=== PATIENT | male | born 1980 | race Caucasian/White ===

== ENCOUNTER 2018-05-17 23:12 | Emergency (ER) | payer SELFPAY ==
[~2018-05-17] VITALS: Ht 175.3 cm; Wt 83.9 kg
[2018-05-17] MEDS ORDERED: LACTATED RINGERS 1,000 ML IV ONE (23:34)
[2018-05-17] MEDS ORDERED: ONDANSETRON 4 MG/2 ML (SDV) Z0FRAN IVP ONE (23:45)
[2018-05-17 23:48] LABS: BASOPHILS # (AUTO) 0.1 10^3/uL (0.0-0.1); BASOPHILS % (AUTO) 1 % (0-10); EOSINOPHILS # (AUTO) 0.3 10^3/uL (0.0-0.3); EOSINOPHILS % (AUTO) 3 % (0-10); HEMATOCRIT 48 % (40-54); LYMPHOCYTES # (AUTO) 1.7 X 10^3 (1.0-4.0); LYMPHOCYTES % (AUTO) 19 % (12-44); MEAN CORPUSCULAR HEMOGLOBIN 28 PG (25-34); MEAN CORPUSCULAR HGB CONC 33 G/DL (32-36); MEAN CORPUSCULAR VOLUME 85 FL (80-99); MEAN PLATELET VOLUME 11.1 FL (7.4-10.4); MONOCYTES # (AUTO) 0.9 X 10^3 (0.0-1.0); MONOCYTES % (AUTO) 10 % (0-12); NEUTROPHILS # (AUTO) 6.2 X 10^3 (1.8-7.8); NEUTROPHILS % (AUTO) 68 % (42-75); PLATELET COUNT 292 10^3/uL (130-400); RED BLOOD COUNT 5.65 10^6/uL (4.35-5.85); RED CELL DISTRIBUTION WIDTH 14.1 % (10.0-14.5); WHITE BLOOD COUNT 9.1 10^3/uL (4.3-11.0)
[2018-05-18 00:03] LABS: ALANINE AMINOTRANSFERASE 43 U/L (0-55); ALBUMIN 4.6 GM/DL (3.2-4.5); ALKALINE PHOSPHATASE 116 U/L (40-136); AMYLASE 48 U/L (25-125); BILIRUBIN,TOTAL 0.6 MG/DL (0.1-1.0); BUN/CREATININE RATIO 16; CALCIUM 9.9 MG/DL (8.5-10.1); CARBON DIOXIDE 30 MMOL/L (21-32); CHLORIDE 100 MMOL/L (98-107); CREATININE SERUM 0.86 MG/DL (0.60-1.30); GFR ESTIMATED > 60; GLUCOSE 112 MG/DL (70-105); LIPASE 32 U/L (8-78); POTASSIUM 4.2 MMOL/L (3.6-5.0); SODIUM 143 MMOL/L (135-145); TOTAL PROTEIN 7.8 GM/DL (6.4-8.2)
[2018-05-18] MEDS ORDERED: LACTATED RINGERS 1,000 ML IV ONE (00:16)
[2018-05-18] MEDS ORDERED: NS IV 1000 ML 1,000 ML IV ONE (00:24)
[2018-05-18 01:27] LABS: BILIRUBIN,URINE NEGATIVE (NEGATIVE); CLARITY,URINE CLEAR; COLOR,URINE YELLOW; GLUCOSE, URINE (UA) 1+ (NEGATIVE); KETONES,URINE NEGATIVE (NEGATIVE); LEUKOCYTE ESTERASE ,URINE 1+ (NEGATIVE); NITRITE,URINE NEGATIVE (NEGATIVE); PH,URINE 8 (5-9); PROTEIN,URINE NEGATIVE (NEGATIVE); UROBILINOGEN,URINE NORMAL (NORMAL)
[2018-05-18 01:36] LABS: BACTERIA,URINE MODERATE /HPF; SQUAMOUS EPITHELIAL CELL,UR RARE /HPF; WBC,URINE RARE /HPF
[2018-05-18] MEDS ORDERED: cefTRIAXone FOR IV USE 1,000 MG in NS (IVPB) 50 ML IV ONE (02:15)
--- NOTE | 2018-05-18 02:16 | ED GI ---
General Chief Complaint: Abdominal/GI Problems Stated Complaint: N,V Nursing Triage Note: PT AMB TO ROOM #9 W/O DIFFICULTY. A&OX4. C/O MEDIAL ABD PAIN, BLOATING, NAUSEA, AND VOMITING. REPORTS HE WAS CUTTING BLACK WALNUT TREES DOWN X2 DAYS AGO AND READ ON GOOGLE THAT BLACK WALNUT DUST IS POISONOUS TO INHAIL. PT REPORTS FOR >24HRS HE HAS BEEN NAUSEOUS AND VOMITING >12X. REPORTS HE IS NERVOUS THE BLACK WALNUT DUST IS MAKING HIM SICK. LUNG SOUNDS CTA. Sepsis Screen: No Definite Risk Source of Information: Patient (TALKS NON-STOP AND SOMEWHAT DIFFICULT TO KEEP ON SUBJECT. ) History of Present Illness Date Seen by Provider: May 17, 2018 Time Seen by Provider: 23:30 Initial Comments PT ARRIVES VIA POV FROM HOME C/O NAUSEA/VOMITING FOR THE LAST 24 HOURS-BEGAN AROUND MIDNIGHT LAST NIGHT STATES HE HAS VOMITED OVER 15 TIMES AND CANNOT KEEP ANYTHING DOWN PT STATES "I BEEN FORCING MYSELF TO EAT" --STATES HE HAS EATEN PANCAKES AND HAD TOMATO SOUP TODAY, BUT HAS NOT BEEN ABLE TO KEEP ANY OF IT DOWN. STATES HE HAS NOT REALLY HAD ANY FLUIDS TODAY. HAD PIZZA LAST NIGHT, PRIOR TO ONSET OF SYMPTOMS HAS NOT URINATED MUCH TODAY--VOIDED A SMALL AMOUNT AT 1800 TONIGHT NO DIARRHEA--LAST BM WAS YESTERDAY OR THE DAY BEFORE, NO CONSTIPATION AND IS NORMAL FOR PT NO ABDOMINAL PAIN, BUT FEELS BLOATED AND ALOT OF PRESSURE IN ABDOMEN NO FEVER NO SICK CONTACTS OR SUSPICIOUS FOODS. STATES HE HAS BEEN SANDING BLACK WALNUT LOGS AND NOW IS CONCERNED THAT HE WAS EXPOSED TO SOME TYPE OF MOLD, AND THINKS IS WHAT CAUSED ALL OF THIS--SEEMS FIXATED ON THIS.. STATES HE HAS HISTORY OF ASTHMA, AND FELT SHORT OF BREATH LAST NIGHT BUT NOT TODAY PT HAS NOT HAD AN INHALER FOR YEARS. PT SMOKES 1/2 PPD PCP: NONE Allergies and Home Medications Allergies Coded Allergies: Sulfa (Sulfonamide Antibiotics) (Verified Allergy, Unknown, 05/17/18) Home Medications Ciprofloxacin HCl 500 Mg Tablet, 500 MG PO BID Prescribed by: JULIÁN NIEVES on 05/18/18220 Ondansetron HCl 4 Mg Tab, 4 MG PO Q4H Prescribed by: JULIÁN NIEVES on 05/18/18220 Patient Home Medication List Home Medication List Reviewed: Yes Review of Systems Review of Systems Constitutional: No chills, No diaphoresis, No dizziness, No fever, No malaise, No weakness EENTM: No Symptoms Reported Respiratory: See HPI; Denies Cough Cardiovascular: No Symptoms Reported Gastrointestinal: See HPI, Abdomen Distended; Denies Abdominal Pain, Denies Constipated, Denies Diarrhea; Nausea, Poor Appetite, Poor Fluid Intake, Vomiting Genitourinary: See HPI Musculoskeletal: no symptoms reported Skin: no symptoms reported Psychiatric/Neurological: No Symptoms Reported Endocrine: No Symptoms Reported Hematologic/Lymphatic: No Symptoms Reported Past Xoqtzaf-Wlyerc-Eegbys Hx Patient Social History Alcohol Use: Occasionally Uses Alcohol Beverage of Choice: [place] Recreational Drug Use: No Smoking Status: Current Everyday Smoker (1/2 PPD) Type Used: Cigarettes 2nd Hand Smoke Exposure: Yes Recent Foreign Travel: No Contact w/Someone Who Travel: No Recent Infectious Disease Expo: No Recent Hopitalizations: No Seasonal Allergies Seasonal Allergies: Yes Past Medical History Surgeries: Yes (FOREIGN BODY REMOVED FROM RIGHT HAND A CHILD) Respiratory: Yes (NO PROBLEMS AND NO INHALER FOR MANY YEARS) Asthma Currently Using CPAP: No Currently Using BIPAP: No Cardiac: No Neurological: No Genitourinary: No Gastrointestinal: No Musculoskeletal: No Endocrine: No HEENT: No Cancer: No Psychosocial: No Integumentary: No Blood Disorders: No Physical Exam Vital Signs Vital Signs - First Documented 05/17/18 23:18 Temp 97.3 Pulse 110 Resp 18 B/P (MAP) 148/89 (108) Pulse Ox 99 O2 Delivery Room Air Capillary Refill : Less Than 3 Seconds Height/Weight/BMI Height: 5'9.00" Weight: 185lbs. oz. 83.444956ef; BMI Method:Stated General Appearance: WD/WN, no apparent distress, other (TALKS NON-STOP, DOES NOT APPEAR TO BE IN ANY DISCOMFORT OR DISTRESS. ) HEENT: PERRL/EOMI Neck: normal inspection Respiratory: normal breath sounds, no respiratory distress, no accessory muscle use Cardiovascular: regular rate, rhythm, no edema, no JVD, no murmur Gastrointestinal: no organomegaly, no pulsatile mass, abnormal bowel sounds ( HYPERACTIVE), distended (MILDLY ), tenderness (EPIGASTRIC AREA) Extremities: normal inspection, normal capillary refill Back: normal inspection, no CVA tenderness Neurologic/Psychiatric: meeting specialist II-XII nml as tested, no motor/sensory deficits, alert, normal mood/affect, oriented x 3 Skin: normal color, warm/dry Progress/Results/Core Measures Results/Orders Lab Results Laboratory Tests Test 05/17/18 23:30 05/18/18 01:20 Range/Units White Blood Count 9.1 4.3-11.0 10^3/uL Red Blood Count 5.65 4.35-5.85 10^6/uL Hemoglobin 16.0 13.3-17.7 G/DL Hematocrit 48 40-54 % Mean Corpuscular Volume 85 80-99 FL Mean Corpuscular Hemoglobin 28 25-34 PG Mean Corpuscular Hemoglobin Concent 33 32-36 G/DL Red Cell Distribution Width 14.1 10.0-14.5 % Platelet Count 292 130-400 10^3/uL Mean Platelet Volume 11.1 H 7.4-10.4 FL Neutrophils (%) (Auto) 68 42-75 % Lymphocytes (%) (Auto) 19 12-44 % Monocytes (%) (Auto) 10 0-12 % Eosinophils (%) (Auto) 3 0-10 % Basophils (%) (Auto) 1 0-10 % Neutrophils # (Auto) 6.2 1.8-7.8 X 10^3 Lymphocytes # (Auto) 1.7 1.0-4.0 X 10^3 Monocytes # (Auto) 0.9 0.0-1.0 X 10^3 Eosinophils # (Auto) 0.3 0.0-0.3 10^3/uL Basophils # (Auto) 0.1 0.0-0.1 10^3/uL Sodium Level 143 135-145 MMOL/L Potassium Level 4.2 3.6-5.0 MMOL/L Chloride Level 100 98-107 MMOL/L Carbon Dioxide Level 30 21-32 MMOL/L Anion Gap 13 5-14 MMOL/L Blood Urea Nitrogen 14 7-18 MG/DL Creatinine 0.86 0.60-1.30 MG/DL Estimat Glomerular Filtration Rate > 60 BUN/Creatinine Ratio 16 Glucose Level 112 H 70-105 MG/DL Calcium Level 9.9 8.5-10.1 MG/DL Corrected Calcium 8.5-10.1 MG/DL Total Bilirubin 0.6 0.1-1.0 MG/DL Aspartate Amino Transf (AST/SGOT) 25 5-34 U/L Alanine Aminotransferase (ALT/SGPT) 43 0-55 U/L Alkaline Phosphatase 116 40-136 U/L Total Protein 7.8 6.4-8.2 GM/DL Albumin 4.6 H 3.2-4.5 GM/DL Amylase Level 48 25-125 U/L Lipase 32 8-78 U/L Urine Color YELLOW Urine Clarity CLEAR Urine pH 8 5-9 Urine Specific [place] 1.015 L 1.016-1.022 Urine Protein NEGATIVE NEGATIVE Urine Glucose (UA) 1+ H NEGATIVE Urine Ketones NEGATIVE NEGATIVE Urine Nitrite NEGATIVE NEGATIVE Urine Bilirubin NEGATIVE NEGATIVE Urine Urobilinogen NORMAL NORMAL MG/DL Urine Leukocyte Esterase 1+ H NEGATIVE Urine RBC (Auto) NEGATIVE NEGATIVE Urine RBC NONE /HPF Urine WBC RARE /HPF Urine Squamous Epithelial Cells RARE /HPF Urine Crystals NONE /LPF Urine Bacteria MODERATE H /HPF Urine Casts NONE /LPF Urine Mucus MODERATE H /LPF Urine Culture Indicated NO My Orders Orders - JULIÁN NIEVES DO Saline Lock/Iv-Start (05/17/18 23:34) Amylase (05/17/18 23:34) Cbc With Automated Diff (05/17/18 23:34) Comprehensive Metabolic Panel (05/17/18 23:34) Lipase (05/17/18 23:34) Ua Culture If Indicated (05/17/18 23:34) Saline Lock/Iv-Start (05/17/18 23:34) Ondansetron Injection (Zofran Injectio (05/17/18 23:45) Saline Lock/Iv-Start (05/17/18 23:34) Lactated Ringers (Lr 1000 Ml Iv Solution (05/17/18 23:34) Saline Lock/Iv-Start (05/18/18 00:16) Lactated Ringers (Lr 1000 Ml Iv Solution (05/18/18 00:16) Acute Abd Series (05/18/18 00:16) Saline Lock/Iv-Start (05/18/18 00:24) Ns Iv 1000 Ml (Sodium Chloride 0.9%) (05/18/18 00:24) Ct Abdomen/Pelvis Wo (05/18/18 00:16) Urine Culture (05/18/18 01:50) Ceftriaxone For Iv Use (Rocephin For I (11/28/18 02:15) Medications Given in ED Current Medications Medications Dose Ordered Sig/Gerald Route Start Time Stop Time Status Last Admin Dose Admin Ceftriaxone Sodium 1000 mg/ Sodium Chloride 50 ml @ 100 mls/hr ONCE ONCE IV 05/18/18 02:15 05/18/18 02:44 DC 05/18/18 02:22 100 MLS/HR Lactated Ringer's 1,000 ml @ 0 mls/hr Q0M ONCE IV 05/17/18 23:34 05/18/18 00:26 DC 05/17/18 23:53 0 MLS/HR Ondansetron HCl 4 mg ONCE ONCE IVP 05/17/18 23:45 05/17/18 23:46 DC 05/17/18 23:53 4 MG Sodium Chloride 1,000 ml @ 0 mls/hr Q0M ONCE IV 05/18/18 00:24 05/18/18 00:26 DC 05/18/18 00:50 0 MLS/HR Vital Signs/I&O 05/17/18 05/18/18 23:18 02:49 Temp 97.3 97.3 Pulse 110 98 Resp 18 18 B/P (MAP) 148/89 (108) 146/98 (114) Pulse Ox 99 99 O2 Delivery Room Air Room Air Blood Pressure Mean: 108 Progress Progress Note : Progress Note NAUSEA RESOLVED AND PT TOLERATING ICE CHIPS AND WATER PRIOR TO DISMISSAL PT STATES HE FEELS MUCH BETTER NO VOMITING DURING ER STAY Diagnostic Imaging Comments ABDOMEN XRAYS--NO ACUTE PROCESS, PENDING RADIOLOGIST REVIEW CT ABDOMEN/PELVIS--MILD BILATERAL PERINEPHRIC STRANDING. , NON OBSTRUCTING 3 MM STONE IN RIGHT KIDNEY. OTHERWISE UNREMARKABLE--PER [facility] VIA FAX @ [id number] Reviewed: Reviewed by Me Departure Impression Primary Impression: Gastroenteritis Additional Impression: UTI (urinary tract infection) Disposition: HOME, SELF-CARE Condition: Improved Departure-Patient Inst. Referrals: UNKNOWN (PCP/Family) Primary Care Physician Patient Instructions: [id number], Urinary Tract Infection, Adult (DC) Add. Discharge Instructions: CLEAR LIQUIDS--WATER, BROTH, JELLO, GATORADE TOMORROW IF YOU ARE BETTER, ADD BRATS DIET TO CLEAR LIQUIDS--BANANAS, RICE, APPLEASAUCE, TOAST, SALTINES TYLENOL AND MOTRIN NEEDED FOR PAIN OR FEVER FOLLOW UP WITH YOUR DR IN 1-2 DAYS IF NO BETTER, RETURN TO ER IF WORSE FOLLOW UP WITH YOUR DR IN 1 WEEK TO RECHECK URINE. All discharge instructions reviewed with patient and/or family. Voiced understanding. Scripts Ciprofloxacin HCl (Cipro) 500 Mg Tablet 500 MG PO BID, #20 TAB Prov: JULIÁN NIEVES DO 05/18/18 Ondansetron HCl (Zofran) 4 Mg Tab 4 MG PO Q4H for Nausea/Vomiting, #10 TAB Prov: JULIÁN NIEVES DO 05/18/18 JULIÁN NIEVES DO May 18, 2018 02:16
[2018-05-18] MEDS ORDERED: ONDN4T PO (02:21)
[2018-05-18] MEDS ORDERED: CIPR-225 PO (02:21)
[2018-05-18 02:49] VITALS: BP 146/98
--- NOTE | 2018-05-18 07:11 | Diagnostic Imaging Report ---
INDICATION: Nausea and vomiting. COMPARISON: CT abdomen and pelvis performed earlier same day. FINDINGS: Lungs are clear. No pleural effusion or pneumothorax. Normal cardiomediastinal silhouette. No free intraperitoneal air. Nonobstructive bowel gas pattern. There are a few air-fluid levels within the small bowel on upright imaging which can be seen with enteritis. Normal regional skeleton. IMPRESSION: No acute process in the chest or abdomen by radiography. Dictated by: Dictated on workstation # [id number]
--- NOTE | 2018-05-18 07:13 | Diagnostic Imaging Report ---
PROCEDURE: CT abdomen and pelvis without contrast. TECHNIQUE: Multiple contiguous axial images were obtained through the abdomen and pelvis without the use of intravenous contrast. INDICATION: Nausea and vomiting. COMPARISON: None available. FINDINGS: Evaluation of the abdominal viscera is mildly limited without contrast. Lower chest: The lung bases are clear. No pericardial or pleural effusion. Peritoneum: No free intraperitoneal air or fluid. Liver and biliary system: Unenhanced liver is normal. The gallbladder is normal. No biliary duct dilation. Spleen and Pancreas: Spleen is normal. Unenhanced pancreas is grossly normal. Adrenals: Normal. tract: Punctate nonobstructing 2 mm stone in the upper pole of the right kidney. No left renal stones. No ureteral stones or obstructive uropathy. Prostate is normal in size. GI tract: Stomach is decompressed. No bowel obstruction. No pericolonic inflammatory changes. Normal appendix. Vasculature and Lymph nodes: Normal caliber aorta. No abdominal or pelvic lymphadenopathy. Musculoskeletal: No concerning osseous lesion. IMPRESSION: 1. Punctate nonobstructing 2 mm stone in the lower pole of the right kidney. No obstructive uropathy. 2. Otherwise, normal noncontrast CT of the abdomen and pelvis. 3. Findings are in agreement with the preliminary report. Dictated by: Dictated on workstation # [id number]
== END 2018-05-18 02:49 | disposition home or self-care (01) ==
LOC: EDUNIT# 23:12 → ER 23:14
DX: K52.9 Noninfective gastroenteritis and colitis, unspecified (principal); N39.0 Urinary tract infection, site not specified; J45.909 Unspecified asthma, uncomplicated; F17.210 Nicotine dependence, cigarettes, uncomplicated; Z91.14 Patient's other noncompliance with medication regimen; Z88.2 Allergy status to sulfonamides
CPT/HCPCS: 36415; 74022; 74176; 80053; 81000; 82150; 83690; 85025; 87088